=== PATIENT | male | born 1935 | race Caucasian/White ===

== ENCOUNTER 2016-11-20 10:15 | Day surgery (SDC) | payer OTHER ==
--- NOTE | ~2016-11-20 | EGD ---
EGD REPORT [facility] [address] [place] [place] [address] NAME: JAMSHID CALIXTO : 39 [place]US : [place] [facility] [place] PAT#: [id number] AGE: 81 ADM/REG DATE : 11/20/16 MR#: [id number] REPORT SERV DATE: 11/20/16 DICTATED BY: RAFAEL MICHAEL DATE: 11/20/16 REPORT STATUS : Draft TRANSCRIBED BY: [employer] DATE: 11/20/16 [facility] Patient Name: Jamshid Calixto Date of : 1935 Attending MD: RAFAEL MICHAEL MD Procedure Date No Time: 11/20/2016 Procedure: Colonoscopy Indications: Follow-up for history of adenomatous polyps in the colon, History of microscopic colitis Referring MD: ANA POTTS Medicines: Propofol per Anesthesia Complications: No immediate complications. Estimated blood loss: None. Procedure: Pre-Anesthesia Assessment: - After reviewing the risks and benefits, the patient was deemed in satisfactory condition to undergo the procedure. - Prior to the procedure, a History and Physical was performed, and patient medications and allergies were reviewed. The patient's tolerance of previous anesthesia was also reviewed. The risks and benefits of the procedure and the sedation options and risks were discussed with the patient. All questions were answered, and informed consent was obtained. Prior Anticoagulants: The patient has taken no previous anticoagulant or antiplatelet agents. ASA Grade Assessment: III - A patient with severe systemic disease. After reviewing the risks and benefits, the patient was deemed in satisfactory condition to undergo the procedure. After I obtained informed consent, the scope was passed under direct vision. Throughout the procedure, the patient's blood pressure, pulse, and oxygen saturations were monitored continuously. The CF [id number] was introduced through the anus and advanced to the cecum, identified by appendiceal orifice and ileocecal valve. The colonoscopy was performed with difficulty due to significant looping, a tortuous colon and the patient's body habitus. Successful completion of the procedure was aided by straightening and shortening the scope to obtain bowel loop reduction and applying abdominal pressure. The appendiceal orifice was photographed. The patient tolerated the procedure well. The quality of the bowel preparation was adequate. The bowel preparation used was split dose polyethylene glycol (PEG). Scope withdrawal time was greater than 6 minutes. EGD REPORT [facility] [id number] [place]. [address] NAME: JAMSHID CALIXTO : 39 STATUS : [place] [facility] [place] PAT#: [id number] AGE: 81 ADM/REG DATE : 11/20/16 MR#: [id number] REPORT SERV DATE: 11/20/16 DICTATED BY: RAFAEL MICHAEL DATE: 11/20/16 REPORT STATUS : Draft TRANSCRIBED BY: [employer] DATE: 11/20/16 Findings: The perianal and digital rectal examinations were normal. Pertinent negatives include normal sphincter tone. Non-bleeding internal hemorrhoids were found during retroflexion and were medium-sized and Grade I (internal hemorrhoids that do not prolapse). Multiple large-mouthed diverticula were found in the sigmoid colon and in the descending colon. Diffuse mild inflammation characterized by adherent blood, congestion (edema), erythema and granularity was found in the entire colon. Biopsies were taken with a cold forceps for histology. Estimated blood loss: none. Impression: - Non-bleeding internal hemorrhoids. - Severe diverticulosis in the sigmoid colon and in the descending colon. - Diffuse mild inflammation was found in the entire examined colon secondary to colitis. Biopsied. Recommendation: - Discharge patient to home (ambulatory). - High fiber diet indefinitely. - Continue present medications. - Await pathology results. - No further routine surveillance colonoscopy. - Return to GI clinic PRN. - Patient has a contact number available for emergencies. The signs and symptoms of potential delayed complications were discussed with the patient. Return to normal activities tomorrow. Written discharge instructions were provided to the patient. Procedure Code(s): --- Professional --- 83432, Colonoscopy, flexible, proximal to splenic flexure; with biopsy, single or multiple Diagnosis Code(s): --- Professional --- K64.0, First degree hemorrhoids K57.30, Diverticulosis of large intestine without perforation or abscess without bleeding K52.9, Noninfective gastroenteritis and colitis, unspecified Z86.010, Personal history of colonic polyps CPT copyright 2013 [employer] [employer]. All rights reserved. The codes documented in this report are preliminary and upon change management administrator review may EGD REPORT [facility] [address] [place] [address] NAME: JAMSHID CALIXTO Margie : 39 [place] : [place] [facility] [place] PAT#: [id number] AGE: 81 ADM/REG DATE : 11/20/16 MR#: [id number] REPORT SERV DATE: 11/20/16 DICTATED BY: RAFAEL MICHAEL. DATE: 11/20/16 REPORT STATUS : Draft TRANSCRIBED BY: [employer] DATE: 11/20/16 be revised to meet current compliance requirements. RAFAEL MICHAEL MD 11/20/2016 11:53 AM This report has been signed electronically. Number of Addenda: 0 Note Initiated On: 11/20/2016 11:10 AM Scope Withdrawal Time 0 hours 6 minutes 58 seconds [address] [id number]
[~2016-11-20 10:15] MED LIST: ASAB PO; CEFT5 PO; D100 PO; FERROUS SULF325 M1 PO; FLOMAX4 PO; FOLIC PO; HYDREA PO; NORCO1 TA1 PO; PRILO PO; PRILOSEC40 MG PO; PRIN20 PO; VESICARE10 MG PO; VITAMIN B-121000 MC1 SL; Vitamin B-Twelve; ZESTRIL20 MG PO; ZOCOR40 PO
== END 2016-11-20 23:59 | disposition home or self-care (01) ==
LOC: DMU 10:15
PROVIDERS: Internal Medicine Gastroenterology
PROC: 0DBE8ZX Excision of Large Intestine, Via Natural or Artificial Opening Endoscopic, Diagnostic (ICD-10-PCS; principal; 2016-11-20 12:00)
DX: K52.9 Noninfective gastroenteritis and colitis, unspecified (principal); K64.0 First degree hemorrhoids; K57.30 Diverticulosis of large intestine without perforation or abscess without bleeding; I10 Essential (primary) hypertension; K21.9 Gastro-esophageal reflux disease without esophagitis; Z86.73 Personal history of transient ischemic attack (TIA), and cerebral infarction without residual deficits; Z86.010 Personal history of colon polyps; R56.9 Unspecified convulsions
CPT/HCPCS: 88305; 88341; 88342